=== PATIENT | male | born 1945 | race Caucasian/White ===

== ENCOUNTER 2021-05-20 21:09 | Emergency (ER) | payer MEDICARE, SELFPAY ==
[2021-05-20 21:17] VITALS: BP 165/73; PULSE 91; RESP 16; TEMP 36.4; O2SAT 98; BMI 27.1
--- NOTE | 2021-05-20 21:25 | ED_ITS ---
HPI - Fall General: Chief Complaint: Fall Stated Complaint: left sided back pain due to fall Time Seen by Provider: 05/20/21 21:16 History of Present Illness: HPI Narrative: 75-year-old male patient was at a hotel this morning and slipped and fell striking his left ribs against the tub. Patient denied any other injury. Patient states that he has some tenderness in the left lateral rib area. Patient was able to go about his day until this evening when he had to sudden sneezes which elicited increased pain and discomfort to his left rib area. Patient had taken to Advil prior to coming to the ER and was planning on going to sleep by his spouse called his grandson whom he was traveling with and told him to take him to the emergency room to get evaluated. Patient denies any other concerns or injuries. Review of Systems General: Reports: 10 or more systems reviewed and unremarkable except in HPI and below Musc: Reports: other (Left rib pain) Physical Exam Const: COMMON NORMALS: no acute distress and patient oriented x3 GENERAL APPEARANCE: cooperative HENMT: COMMON NORMALS: normocephalic and Normal external nose present HEAD & SCALP: normal to inspection and normocephalic NOSE: Normal external nose present MOUTH: Normal oral and palatal mucosa present Eye: GENERAL EYE: appearance normal, both eyes and all related structures Neck/C-Spine: COMMON NORMALS: full ROM Chest: OTHER: Left lateral lower rib tenderness to palpation. No flailing of the chest or deformity is noted. Resp: COMMON NORMALS: normal respiratory effort EFFORT & INSPECTION: Yes able to speak in complete sentences Cardio: COMMON NORMALS: regular rate and regular rhythm RATE: regular rate RHYTHM: regular rhythm GI: COMMON NORMALS: non-tender Back/Pelvis: COMMON NORMALS: thoracic and lumbar spine normal to inspection Extremity: COMMON NORMALS: normal to inspection Neuro: COMMON NORMALS: patient oriented x3 and moves all extremities Psych: COMMON NORMALS: mental status grossly normal and cooperative Skin: COMMON NORMALS: no rashes or lesions noted GENERAL SKIN EXAM: no rashes or lesions noted Course Vital Signs: Vital signs: Vital Signs Temperature 97.6 F 05/20/21 21:17 Pulse Rate 91 05/20/21 21:17 Respiratory Rate 16 05/20/21 21:17 Blood Pressure 165/73 05/20/21 21:17 Pulse Oximetry 98 05/20/21 21:17 MDM - Fall MDM Narrative: Medical decision making narrative: 75-year-old male comes in with left lower rib discomfort. Patient had suffered a fall this morning while getting out of the bathtub. Patient appears well. Patient appears no acute distress. Respirations are even lungs are clear to auscultation. Left lateral rib tenderness is noted in the lower part of the chest wall. Abdomen is soft nontender. Vital signs are normal. Differential diagnosis includes rib fracture, pneumothorax, contusion. X-ray noted some atelectasis in the left lower lung field but no sign of fractures of the rib. Reviewed exam with patient with recommendations for treatment and follow-up. Patient was given a short course of hydrocodone tablets to help with pain and discomfort. Patient was encouraged to use them sparingly and to use Tylenol and ibuprofen for most of his pain relief. Also recommended patient monitor for worsening shortness of breath or high fever and have repeat x-rays as needed. Patient reported understanding and agreed to plan. Discharge Plan Discharge Patient Disposition: Home Clinical Impression: Rib pain on left side Condition: Stable Prescriptions: New hydrocodone-acetaminophen 5-325 mg tablet 1 tab PO Q6H PRN (Reason: pain (scale score 7-10)) Qty: 7 RF: 0 Discharge Orders: Discharge ED (Routine); Ordered 05/20/21 Ordered By: Luis Bolton Discharge Diet: Usual diet Discharge Activity: Increase activity as tolerated Patient Instructions: Rib Fracture (ED), Opioid Safety Activity Restrictions/Additional Instructions: Activity as tolerated. Drink plenty of fluids with medication. Use acetaminophen and ibuprofen to control pain. Use hydrocodone for breakthrough pain. Follow-up with primary care for further instruction. Return to the ED for new concerns. Coding Level of Care Code ED Director Of Engineering for [facility] Exam Comprehensive
--- NOTE | 2021-05-20 21:31 | XRR_ITS ---
PROCEDURE INFORMATION: Exam: XR Left Ribs with PA Chest Exam date and time: 05/20/2021 9:31 PM Age: 75 years old Clinical indication: Injury or trauma; Fall; Rib area, left side; Blunt trauma; Injury date: Today; Injury details: PT fell in shower hitting his left side on the tub. PT states later in the day he sneezed and heard a pop and took his breath away. ; Additional info: Fall injury TECHNIQUE: Imaging protocol: XR Left ribs with PA chest. Views: 3 views COMPARISON: No relevant prior studies available. FINDINGS: Lungs: Linear atelectasis or scarring at the peripheral left lung base. Pleural spaces: Unremarkable. No pleural effusion. No pneumothorax. Heart/Mediastinum: Unremarkable. No cardiomegaly. Bones/joints: No evidence of fracture. XR/XR ribs LT mn 3V w CXR1V [id number] IMPRESSION: Linear atelectasis scarring at the peripheral left lung base. No evidence of fracture.
[2021-05-20] MEDS: HYDROcodone-acetaminophen 5-325 mg Tablet 1 TAB PO (21:34)
== END 2021-05-20 22:28 | disposition home or self-care (01) ==
PROVIDERS: Emergency Provider Nurse Practitioner Family
DX: R07.81 Pleurodynia (principal)
CPT/HCPCS: 71101; 99283

== ENCOUNTER 2022-11-17 19:04 | Emergency (ER) | payer MEDICARE, SELFPAY ==
[2022-11-17 19:22] VITALS: BMI 27.1
[2022-11-17 19:27] VITALS: BP 142/76; PULSE 88; RESP 18; TEMP 36.9; O2SAT 96
[2022-11-17 20:00] LABS: Basophils # 0.1 10^3/uL (0.0-0.1); Basophils % 0.6 %; Eosinophils # 0.3 10^3/uL (0.0-0.8); Eosinophils % 2.4 %; Hematocrit 40.6 % (42.0-52.0); Hemoglobin 13.7 g/dL (11.7-16.6); Lymphocytes # 0.9 10^3/uL (0.8-4.8); Lymphocytes % 8.8 %; Mean Corpuscular HGB Conc 33.7 g/dL (30.0-36.0); Mean Corpuscular Hemoglobin 33.3 pg (28.0-34.0); Mean Corpuscular Volume 98.5 fl (80-94); Monocytes # 0.9 10^3/uL (0.2-0.9); Monocytes % 8.3 %; Neutrophils # 8.37 10^3/uL (1.8-7.7); Neutrophils % 79.4 %; Nucleated Red Blood Cells % 0 %; Platelet Count 163 10^3/cmm (130-400); Red Blood Count 4.12 10^6/uL (4.1-5.3); Red Cell Distribution Width 12.5 % (12.1-15.1); White Blood Count 10.5 10^3/uL (4.0-10.0)
[2022-11-17 20:18] LABS: Alanine Aminotransferase 17 U/L (0-41); Albumin Level 4.3 g/dL (3.5-5.2); Alkaline Phosphatase 58 U/L (40-130); Anion Gap 14.3 (5-19); Aspartate Amino Transferase 19 U/L (0-40); Blood Urea Nitrogen 22 mg/dL (8-23); Calcium 9.2 mg/dL (8.5-10.5); Carbon Dioxide 25 mmol/L (22-29); Chloride 101 mmol/L (98-107); Creatinine Clr Calc Pharmacy 78.3226; Glucose 94 mg/dL (65-115); Lipase 25 U/L (13-60); Osmolality Calculated 285 mOsm/kg (285-295); Potassium 4.3 mmol/L (3.5-5.1); Sodium 136 mmol/L (136-145); Total Bilirubin 0.6 mg/dL (0.15-1.2); Total Protein 7.3 g/dL (6.6-8.7)
--- NOTE | 2022-11-17 20:53 | ED_ITS ---
HPI - Male Genitourinary General: Chief complaint: Urogenital-Male Stated complaint: abd Time Seen by Provider: 11/17/22 20:53 History of Present Illness: 76-year-old gentleman with history of traumatic inguinal hernia status postrepair multiple years ago presenting to the emergency department due to concern over recurrent hernia. He reports mild aching mostly in his right medial thigh over the past few days. He also developed a small bump approximately 10 days ago. Initially this was nontender and very mild. Now he notices, after lifting, increased discomfort and prominence. He still having bowel movements, no issues urinating, no other signs systemic illness. No other specific changes in health, exacerbating, or alleviating factors identified. Onset (ago): day(s) Duration: progressively worsening Location: abdomen Severity: moderate Quality: aching Relieving factors: none Exacerbating factors: movement and other Review of Systems General: Reports: 10 or more systems reviewed and unremarkable except in HPI and below PFSH ED PFSH: Medical History (Updated 11/27/22 @ 20:28 by Joseph Kimball MD) No significant past medical history Surgical History (Updated 11/27/22 @ 20:28 by Joseph Kimball MD) No significant past surgical history Physical Exam Const: COMMON NORMALS: alert GENERAL APPEARANCE: cooperative and well developed HENMT: COMMON NORMALS: normocephalic and atraumatic HEAD & SCALP: normocephalic and atraumatic Eye: COMMON NORMALS: conjunctivae normal CONJUNCTIVA: Yes conjunctivae normal SCLERA: sclerae normal Neck/C-Spine: COMMON NORMALS: supple GENERAL: Yes trachea midline Resp: COMMON NORMALS: normal respiratory effort EFFORT & INSPECTION: Yes ab le to speak in complete sentences Cardio: COMMON NORMALS: regular rate and regular rhythm RATE: regular rate RHYTHM: regular rhythm GI: COMMON NORMALS: Soft to palpation PALPATION: Yes Soft to palpation and No Tenderness to palpation present (GI) : OTHER: No penile or testicular pain. Over the right inguinal crease is a approximately 4 cm by 2 cm. Erythema and induration which is tender to palpation. Extremity: GENERAL: Yes normal exam except as noted and No edema Neuro: COMMON NORMALS: moves all extremities SENSORIUM/ORIENTATION: Yes alert and No Orientation impaired Skin: NARRATIVE SKIN EXAM: Right upper medial thigh erythema without fasciculations. Course Vital Signs: Vital signs: Vital Signs Temperature 98.5 F 11/17/22 19:27 Pulse Rate 77 11/17/22 23:37 Respiratory Rate 18 11/17/22 23:37 Blood Pressure 128/67 11/17/22 23:37 Pulse Oximetry 96 11/17/22 23:37 Oxygen Delivery Me thod 11/17/22 19:27 MDM - Male Medical Decision Making 77-year-old gentleman presenting for concern of hernia. Exam as above. Location concern for femoral hernia or other cause. Denies obstructive symptoms. Nontoxic. Labs with no leukocytosis, hemoglobin and platelet count. No significant metabolic abnormality. No UTI. CT demonstrates no hernia. Likely cause of patient symptoms identified as cellulitis. No deep fluid collection or infection. Patient given antibiotics. He is satisfactory for outpatient management. The results of ED evaluation were discussed with the patient including prescriptions and/or symptomatic cares (if applicable) including appropriate and responsible use, followup plan, and return precautions. The patient verbalized understanding and felt safe for discharge. Medical Records I reviewed the patient's medical records. Lab Data I reviewed the patient's lab results. 11/17/22 19:39 11/17/22 19:39 Radiology Impressions Abdomen/Pelvis CT 11/17/22 21:11 IMPRESSION: 1. Strandy and hazy opacities are seen in the subcutaneous fat and fascia of the right groin extending into the medial aspect of the proximal right thigh with overlying skin thickening present, findings that could represent inflammatory changes and cellulitis. 2. Irregular bladder wall thickening with multiple bladder diverticula present could represent the sequela of chronic bladder outlet obstruction. Hazy opacities adjacent to the serosal margin of the bladder are seen. Cholecystitis cannot be excluded. 3. Small left inguinal hernia containing fat 4. Small right hydrocele. 5. Diverticulosis of the sigmoid colon 6. Two nonobstructing calculi seen in the lower pole of the left kidney, the largest measuring 9.8 mm. 7. Multiple small bilateral simple renal cysts are seen, the largest seen on the left measuring 13 mm. No further workup needed. COMMENTS: Consistent with the [employer]'s Incidental Findings Committee white paper (J Am Nat Radiol 2018): Any incidental renal lesion less than 1 cm or classified as too small to characterize, or any incidental cystic renal lesion characterized as simple-appearing, is likely benign. No follow-up imaging is recommended for these lesions per consensus recommendations based on imaging criteria. Laboratory Results WBC 10.5 10^3/uL (4.0-10.0) H 11/17/22 19:39 RBC 4.12 10^6/uL (4.1-5.3) 11/17/22 19:39 Hgb 13.7 g/dL (11.7-16.6) 11/17/22 19:39 Hct 40.6 % (42.0-52.0) L 11/17/22 19:39 MCV 98.5 fl (80-94) H 11/17/22 19:39 MCH 33.3 pg (28.0-34.0) 11/17/22 19:39 MCHC 33.7 g/dL (30.0-36.0) 11/17/22 19:39 RDW 12.5 % (12.1-15.1) 11/17/22 19:39 Plt Count 163 10^3/cmm (130-400) 11/17/22 19:39 MPV 11.0 fL (7.4-10.4) H 11/17/22 19:39 Neut % (Auto) 79.4 % 11/17/22 19:39 Lymph % (Auto) 8.8 % 11/17/22 19:39 [place] % (Auto) 8.3 % 11/17/22 19:39 Eos % (Auto) 2.4 % 11/17/22 19:39 Baso % (Auto) 0.6 % 11/17/22 19:39 Neut # (Auto) 8.37 10^3/uL (1.8-7.7) H 11/17/22 19:39 Lymph # (Auto) 0.9 10^3/uL (0.8-4.8) 11/17/22 19:39 [place] # (Auto) 0.9 10^3/uL (0.2-0.9) 11/17/22 19:39 Eos # (Auto) 0.3 10^3/uL (0.0-0.8) 11/17/22 19:39 Baso # (Auto) 0.1 10^3/uL (0.0-0.1) 11/17/22:39 Nucleated RBC % (auto) 0 % 11/17/22 19:39 Nucleated RBCs # 0.0 /100WBC 11/17/22 19:39 Sodium 136 mmol/L (136-145) 11/17/22 19:39 Potassium 4.3 mmol/L (3.5-5.1) 11/17/22 19:39 Chloride 101 mmol/L (98-107) 11/17/22 19:39 Carbon Dioxide 25 mmol/L (22-29) 11/17/22 19:39 Anion Gap 14.3 (5-19) 11/17/22 19:39 BUN 22 mg/dL (8-23) 11/17/22 19:39 Creatinine 0.9 mg/dL (0.7-1.2) 11/17/22 19:39 GFR Calculation Not Reportable 11/17/22 19:39 Glucose 94 mg/dL (65-115) 11/17/22 19:39 Calculated Osmolality 285 mOsm/kg (285-295) 11/17/22 19:39 Lactic Acid 0.7 mmol/L (0.5-2.2) 11/17/22 19:39 Calcium 9.2 mg/dL (8.5-10.5) 11/17/22 19:39 Total Bilirubin 0.6 mg/dL (0.15-1.2) 11/17/22 19:39 AST 19 U/L (0-40) 11/17/22 19:39 ALT 17 U/L (0-41) 11/17/22 19:39 Alkaline Phosphatase 58 U/L (40-130) 11/17/22 19:39 Total Protein 7.3 g/dL (6.6-8.7) 11/17/22 19:39 Albumin 4.3 g/dL (3.5-5.2) 11/17/22 19:39 Globulin 3.0 g/dL (1.3-4.6) 11/17/22 19:39 Lipase 25 U/L (13-60) 11/17/22 19:39 Urine Color Yellow (Yellow) 11/17/22 21:07 Urine Appearance Clear (CLEAR) 11/17/22 21:07 Urine pH 6 (5-7) 11/17/22 21:07 Ur Specific Pope 1.020 (1.005-1.030) 11/17/22 21:07 Urine Protein Neg (Negative) 11/17/22 21:07 Urine Glucose (UA) Norm (Normal) 11/17/22 21:07 Urine Ketones Negative (Negative) 11/17/22 21:07 Urine Blood Neg (Negative) 11/17/22 21:07 Urine Nitrate Negative (Negative) 11/17/22 21:07 Urine Bilirubin Neg (Negative) 11/17/22 21:07 Urine Urobilinogen Norm mg/dL (Negative) 11/17/22 21:07 Ur Leukocyte Esterase Negative (Negative) 11/17/22 21:07 Discharge Plan Discharge Patient Disposition: Home Clinical Impression: Cellulitis Condition: Stable Prescriptions: New oxycodone 5 mg tablet 5 mg PO Q4H PRN (Reason: pain) Qty: 10 0RF No Action hydrocodone-acetaminophen 5-325 mg tablet 1 tab PO Q6H PRN (Reason: pain (scale score 7-10)) Qty: 7 0RF Discharge Orders: Discharge ED (Routine); Ordered 11/17/22 Ordered By: Joseph Kimball Discharge Diet: Usual diet Discharge Activity: Resume usual activity Patient Instructions: Cellulitis (ED), Opioid Safety Activity Restrictions/Additional Instructions: Thank you for visiting the emergency department. You were seen and evaluated for groin pain. The most likely cause of your symptoms is related to skin infection. This will be treated with antibiotics. Please follow-up with your primary care provider. You may use [id number] medications such as acetaminophen and ibuprofen for pain however please do not exceed the daily recommended dosage as listed on the packaging and please keep in mind that many namebrand medications contain the same active ingredients. Please avoid these medications if previously instructed to do so by another physician due to other underlying medical condition. For pain uncontrolled by these medications I will prescribe oxycodone, please use this cautiously as discussed. Incidental findings on CT include enlarged prostate, irregular bladder appearance with likely diverticula, nonobstructing kidney stones, multiple renal cysts, small right hydrocele, small left inguinal hernia containing fat. Return to the emergency department for fevers, inability to tolerate oral intake, uncontrolled pain, spread of redness despite antibiotics, or anything else that you are concerned about and feel needs emergency department evaluation. Coding Level of Care Code ED Edging Catcher for [facility] Olivia
[2022-11-17 21:11] LABS: Add Urine Microscopic? NO; Charge for UA Resulting for Rev
--- NOTE | 2022-11-17 21:11 | CTR_ITS ---
PROCEDURE INFORMATION: Exam: CT Abdomen And Pelvis With Contrast Exam date and time: 11/17/2022 9:34 PM Age: 76 years old Clinical indication: Mass, lump, or swelling; Lower; Abdominal pain; Localized; Prior surgery; Surgery type: RT inguinal hernia repair; Patient HX: C/O RT groin pain with swelling. Redness extending from RT groin to mid inner thigh. ; Additional info: Pelvic lump, HX repair, ? femoral hernia vs other TECHNIQUE: Imaging protocol: Computed tomography of the abdomen and pelvis with contrast. Radiation optimization: All CT scans at this facility use at least one of these dose optimization techniques: automated exposure control; mA and/or kV adjustment per patient size (includes targeted exams where dose is matched to clinical indication); or iterative reconstruction. Contrast material: OMNI 350; Contrast volume: 100 ml; Contrast route: INTRAVENOUS (IV); Other protocol: This patient has received 0 known CTs and 0 known cardiac nuclear medicine studies in the 12 months prior to the current study. COMPARISON: CR XR ribs LT mn 3V w CXR1V [id number] 05/20/2021 9:31 PM RADIATION DOSE METRICS: Total DLP (mGy-cm): 955.88 FINDINGS: Liver: Normal. No mass. Gallbladder and bile ducts: Normal. No calcified stones. No ductal dilation. Pancreas: Normal. No ductal dilation. Spleen: Normal. No splenomegaly. Adrenal glands: Normal. No mass. Kidneys and ureters: There are small bilateral hypoattenuation cystic lesions seen within the kidneys, the largest is seen in the lower pole of the left kidney posteriorly measuring 13 mm. There are 2 nonobstructing calculi seen in the lower pole of the left kidney, the largest measuring 9.8 mm. Stomach and bowel: Diverticula are present on the sigmoid colon. There are no inflammatory changes seen to suggest diverticulitis. Appendix: The appendix is visualized and is normal in configuration. Intraperitoneal space: Unremarkable. No free air. No significant fluid collection. Vasculature: Unremarkable. No abdominal aortic aneurysm. Lymph nodes: Unremarkable. No enlarged lymph nodes. Urinary bladder: There is irregular bladder wall thickening seen within multiple bladder diverticula present. There is a prominent bladder diverticulum seen on the bladder dome measuring 2.8 x 2.9 x 3 5 cm. A chronic bladder outlet obstruction cannot be excluded. Some haziness seen adjacent to the serosal margin of the bladder. Chronic cystitis could have this appearance. Reproductive: Prostate gland is prominent measuring 5.1 x 5.4 x 5.4 cm. There is a small right hydrocele. Bones/joints: Unremarkable. No acute fracture. Soft tissues: There is a small left inguinal hernia present containing fat. Some strandy and hazy opacities are seen in the subcutaneous fat and fascia of right groin extending into the medial aspect of the right thigh proximally. Mild skin thickening is seen in the right groin. Inflammatory changes and cellulitis cannot be excluded. CT/CT abdomen pelvis w con* [id number] IMPRESSION: 1. Strandy and hazy opacities are seen in the subcutaneous fat and fascia of the right groin extending into the medial aspect of the proximal right thigh with overlying skin thickening present, findings that could represent inflammatory changes and cellulitis. 2. Irregular bladder wall thickening with multiple bladder diverticula present could represent the sequela of chronic bladder outlet obstruction. Hazy opacities adjacent to the serosal margin of the bladder are seen. Cholecystitis cannot be excluded. 3. Small left inguinal hernia containing fat 4. Small right hydrocele. 5. Diverticulosis of the sigmoid colon 6. Two nonobstructing calculi seen in the lower pole of the left kidney, the largest measuring 9.8 mm. 7. Multiple small bilateral simple renal cysts are seen, the largest seen on the left measuring 13 mm. No further workup needed. COMMENTS: Consistent with the [employer]'s Incidental Findings Committee white paper (J Am Nat Radiol 2018): Any incidental renal lesion less than 1 cm or classified as too small to characterize, or any incidental cystic renal lesion characterized as simple-appearing, is likely benign. No follow-up imaging is recommended for these lesions per consensus recommendations based on imaging criteria.
[2022-11-17 21:19] LABS: Urine Appearance Clear (CLEAR); Urine Color Yellow (Yellow); pH Urine 6 (5-7)
[2022-11-17] MEDS: iohexol 350 mg/mL 500 mL Btl (per mL) IV (21:34)
[2022-11-17 21:37] LABS: Bilirubin Urine Neg (Negative); Blood Urine Neg (Negative); Glucose Urine UA Norm (Normal); Ketones Urine Negative (Negative); Leukocyte Esterase Urine Negative (Negative); Nitrate Urine Negative (Negative); Protein Urine Neg (Negative); Urobilinogen Urine Norm (Negative)
[2022-11-17 22:00] VITALS: BP 134/72; PULSE 88; RESP 18; O2SAT 98
[2022-11-17 22:13] LABS: Lactic Sepsis W/Reflex 0.7 mmol/L (0.5-2.2)
[2022-11-17] MEDS: clindamycin 600 MG/50 ML PREMIX 100 MG IV (22:38)
[2022-11-17 23:37] VITALS: BP 128/67; PULSE 77; RESP 18; O2SAT 96
== END 2022-11-17 23:39 | disposition home or self-care (01) ==
PROVIDERS: Emergency Medicine; Emergency Provider Emergency Medicine
DX: L03.314 Cellulitis of groin (principal)
CPT/HCPCS: 36415; 74177; 80053; 81003; 83605; 83690; 85025; 96374; 99285; J3490; Q9967